=== PATIENT | female | born 1930 | race Caucasian/White ===

== ENCOUNTER → 2017-11-21 | Outpatient (CLI) | payer OTHER ==
[~2017-11-21] MED LIST: ACET325 PO; ALBU3IS INH; ALBU90OI6 INH; AMLO5 PO; AZIT250 PO; CALCAVITD PO; CEFP200 PO; CHOL10002 PO; COMBIVENT RESPIM4 GM INH; Dulcolax5 MG PO; ENOX40I SC; FLAX SEED OIL1000 MG PO; LOSA50 PO; METO50ER PO; MUCUS ER600 M1 PO; MULVIT PO; NUTRISOURCE FIBE4 GM PO; Norco 5-325 Ta1 EACH PO; OMEG1CAP30 PO; PANT40 PO; SENN187 PO; TRIHYD253A PO; VIT D; Vesicare10 MG PO; [UNRECOGNIZED DRUG - OTHER] PO
[2017-11-21 15:42] LABS: BASOPHILS ABSOLUTE AUTO 0.05 K/mm3 (0.00-0.23); BASOPHILS PERCENT AUTO 0 % (0-2); EOSINOPHILS ABSOLUTE AUTO 0.21 K/mm3 (0.00-0.68); EOSINOPHILS PERCENT AUTO 2 % (0-6); Hemoglobin 12.4 g/dL (11.5-16.0); IMMATURE GRAN ABSOLUTE AUTO 0.09 K/mm3 (0.00-0.10); IMMATURE GRAN PERCENT AUTO 1 % (0-1); LYMPHOCYTES ABSOLUTE AUTO 1.37 K/mm3 (0.84-5.20); LYMPHOCYTES PERCENT AUTO 10 % (21-46); MONOCYTES ABSOLUTE AUTO 0.85 K/mm3 (0.16-1.47); MONOCYTES PERCENT AUTO 6 % (4-13); Mean Corpuscular HGB 30.4 pg (26.0-34.0); Mean Corpuscular HGB Conc 32.6 g/dL (31.5-36.5); Mean Corpuscular Volume 93 fL (80-100); Mean Platelet Volume 9.9 fL (9.1-12.4); NEUTROPHILS PERCENT AUTO 82 % (41-73); Platelet Count 253 K/mm3 (150-400); RDW Coefficient Variation 13.6 % (11.7-14.2); RDW Standard Deviation 46.7 fL (35.1-46.3); Red Blood Cell Count 4.08 M/mm3 (3.80-5.20); White Blood Cell Count 14.07 K/mm3 (4.00-11.30)
[2017-11-21 15:55] LABS: Alanine Aminotransfer (ALT/SGP 27 U/L (12-78); Albumin, Blood 3.5 g/dL (3.4-5.0); Alk Phos 59 U/L (40-126); Anion Gap 9 mmol/L (6-16); Aspartate Aminotrans (AST/SGOT 22 U/L (12-37); Bilirubin, Total 0.6 mg/dL (0.1-1.0); Blood Urea Nitrogen 26 mg/dL (8-24); CO2, Blood 28 mmol/L (21-32); CPK Creatine Kinase 183 U/L (26-192); Chloride, Blood 103 mmol/L (98-108); Creatinine, Blood 1.37 mg/dL (0.40-1.00); Globulin, Blood 3.4 g/dL (2.2-4.0); Glomerular Filtration Rate 37 (60-); Glucose, Blood 93 mg/dL (70-99); Potassium, Blood 4.6 mmol/L (3.5-5.5); Sodium, Blood 140 mmol/L (136-145); Total Protein, Blood 6.9 g/dL (6.4-8.2)
[2017-11-21 15:56] LABS: Troponin I <0.017 ng/mL (0.000-0.040)
== END | disposition home or self-care (01) ==
LOC: LAB SHORT 15:32 → LAB EV 15:32
PROVIDERS: General Practice
DX: R06.02 Shortness of breath (principal)
CPT/HCPCS: 80053; 82550; 83880; 84484; 85025; 85379

== ENCOUNTER 2019-03-25 20:54 | Inpatient (IN) | payer OTHER ==
[~2019-03-25] VITALS: Ht 165.1 cm; Wt 83.9 kg
[2019-03-25 21:26] LABS: BASOPHILS ABSOLUTE AUTO 0.03 K/mm3 (0.00-0.23); BASOPHILS PERCENT AUTO 0 % (0-2); EOSINOPHILS PERCENT AUTO 2 % (0-6); Hematocrit 42.4 % (33.0-51.0); IMMATURE GRAN ABSOLUTE AUTO 0.02 K/mm3 (0.00-0.10); IMMATURE GRAN PERCENT AUTO 0 % (0-1); LYMPHOCYTES ABSOLUTE AUTO 2.43 K/mm3 (0.84-5.20); LYMPHOCYTES PERCENT AUTO 27 % (21-46); MONOCYTES ABSOLUTE AUTO 0.64 K/mm3 (0.16-1.47); MONOCYTES PERCENT AUTO 7 % (4-13); Mean Corpuscular HGB 31.6 pg (26.0-34.0); Mean Corpuscular Volume 96 fL (80-100); Mean Platelet Volume 9.9 fL (9.1-12.4); NEUTROPHILS ABSOLUTE AUTO 5.61 K/mm3 (1.96-9.15); NEUTROPHILS PERCENT AUTO 63 % (41-73); Platelet Count 220 K/mm3 (150-400); RDW Coefficient Variation 13.6 % (11.7-14.2); RDW Standard Deviation 47.9 fL (35.1-46.3); Red Blood Cell Count 4.43 M/mm3 (3.80-5.20); White Blood Cell Count 8.93 K/mm3 (4.00-11.30)
[2019-03-25 21:46] LABS: Alanine Aminotransfer (ALT/SGP 24 U/L (12-78); Albumin, Blood 3.9 g/dL (3.4-5.0); Albumin/Globulin Ratio 1.2 (0.8-1.8); Alk Phos 45 U/L (50-136); Anion Gap 7 mmol/L (6-16); Aspartate Aminotrans (AST/SGOT 16 U/L (12-37); Bilirubin, Total 0.5 mg/dL (0.1-1.0); Blood Urea Nitrogen 32 mg/dL (8-24); Bun/Creatinine Ratio 25.6 (12.0-20.0); CO2, Blood 29 mmol/L (21-32); Calcium, Blood 9.6 mg/dL (8.5-10.1); Chloride, Blood 104 mmol/L (98-108); Creatinine, Blood 1.25 mg/dL (0.40-1.00); Globulin, Blood 3.2 g/dL (2.2-4.0); Glomerular Filtration Rate 43 (60-); Glucose, Blood 120 mg/dL (70-99); Potassium, Blood 3.7 mmol/L (3.5-5.5); Sodium, Blood 140 mmol/L (136-145); Total Protein, Blood 7.1 g/dL (6.4-8.2); Troponin I <0.015 ng/mL (0.000-0.040)
[2019-03-25 23:32] LABS: Source, Urine Clean Catch
[2019-03-25 23:37] LABS: Bilirubin, Urine Neg (Neg); Blood, Urine Neg (Neg); Glucose Qualitative, Urine Neg (Neg); Ketones, Urine Neg (Neg); Leukocyte Esterase, Urine Neg (Neg); Nitrite, Urine Neg (Neg); Protein, Urine Neg (Neg); Urobilinogen, Urine NORM (Normal)
[2019-03-25 23:38] LABS: Appearance, Urine Clear (Clear); Color, Urine Yellow (P-Yellow)
--- NOTE | 2019-03-26 01:32 | NUR ---
ADMIT PT ARRIVED TO ICU 15 MEDICAL STATUS AT 0045. PT STOOD UP TO TRANSFER TO ICU BED. PT IS ALERT, ORIENTED, AND PLEASANT. PT IS VERY TALKATIVE AND DENIES SOB AT THIS TIME. PT ON 2L O2 NC. VITAL SIGNS STABLE. IV SALINE LOCKED. PT INCONTINENT OF URINE, ATTENDS IN PLACE. PT ASSISTS WITH REPOSITIONING WELL. NO FAMILY AT BEDSIDE. WILL CONTINUE TO MONITOR.
--- NOTE | 2019-03-26 06:03 | NUR ---
SHIFT SUMMARY NO ACUTE CHANGES. PT SLEEPING OFF AND ON THROUGHOUT THE MORNING. VITAL SIGNS STABLE. PT ON 2L O2 NC. PT HAS DENIED SOB. WILL CONTINUE TO MONITOR AND REPORT OFF TO ONCOMING RN.
--- NOTE | 2019-03-26 09:59 | NUR ---
ASSUMPTION OF CARE THIS RN ASSUMED CARE OF PT AT 0700, PT SLEEPING ON 2L O2 PER NC WITH 02 AT 99%, RESPIRATIONS EVEN AND UNLABORED. UPON AWAKENING, PT UP TO BATHROOM USING WALKER TO AMBULATE WITH STAND BY ASSISTANCE. PT ALERT AND ORIENTED X4 AND VERBALIZES WANT TO BE DC'D HOME TODAY. VSS WITH BP 160-170'S PRIOR TO MORNING MEDICATIONS. PT 02 NC REMOVED AND 02 SATS REMAINED AT 94-96% ON RA. LUNG SOUNDS CLEAR AND DIMINISHED THROUGHOUT. PT STS TINGLING TO LOWER EXTREMETIES WHICH IS NORML FOR PT. 20g IV TO LAC INTACT AND SL.
--- NOTE | 2019-03-26 12:30 | NUR ---
DR BLEVINS IN TO SEE PT. D-DIMER ORDERED, IF NEGATIVE PT TO BE DC'D HOME.
--- NOTE | 2019-03-26 13:35 | NUR ---
D-DIMER RESULTS CALLED D-DIMER RESULTS TO DR. BLEVINS. PT TO BE DC'D HOME TODAY.
--- NOTE | 2019-03-26 15:00 | NUR ---
DISCHARGE DISCHARGE INSTRUCTIONS PROVIDED TO PT AND PT'S DAUGHTER. NO NEW MEDICATIONS, PT IS TO CONTINUE HOME MEDS PRESCRIBED BY PCP. PT VERBALIZED UNDERSTANDING. DC'D HOME IN DAUGHTER'S CARE IN STABLE CONDITION.
== END 2019-03-26 15:16 | disposition home or self-care (01) | DRG 189 ==
LOC: ER 20:54 → ICUW 23:53
PROVIDERS: Emergency Medicine; Physician Assistant; ADMIT Family Medicine
DX: J96.01 Acute respiratory failure with hypoxia (principal); J44.9 Chronic obstructive pulmonary disease, unspecified; Z87.891 Personal history of nicotine dependence; G57.93 Unspecified mononeuropathy of bilateral lower limbs; N18.3 Chronic kidney disease, stage 3 (moderate); K21.9 Gastro-esophageal reflux disease without esophagitis; I12.9 Hypertensive chronic kidney disease with stage 1 through stage 4 chronic kidney disease, or unspecified chronic kidney disease
CPT/HCPCS: 36415; 71046; 80053; 81003; 82947; 84484; 85025; 85379; 93005; 93010; 94644; 94760; 99285-25; J1650